=== PATIENT | male | born 1995 | race Caucasian/White ===

== ENCOUNTER 2017-01-08 19:53 | Emergency (ER) | payer OTHER ==
--- NOTE | 2017-01-08 20:04 | PDOC ---
History of Present Illness - General History Source: Patient Exam Limitations: No Limitations <Vipin Mathur - Last Filed: 01/08/17 20:35> <Fariba Parr - Last Filed: 01/12/17 02:16> - General Chief Complaint: Pain, Acute Stated Complaint: PAIN IN CHEST Time Seen by Provider: 01/08/17 20:01 - History of Present Illness Initial Comments: 01/08/17 20:35 The patient is a 21 year old male, with a significant past medical history of GERD and chronic back pain, who presents to the emergency department with chest discomfort for approximately 3 days. The patient reports he initially developed mild substernal chest discomfort 3 days ago while at work. Patient reports a long history of heavy lifting for work. Yesterday, patient reports injuring his back. Since then, he reports his chest discomfort has increased and is pleuritic in nature. He denies any associated diaphoresis, palpitations, shortness of breath, lower extremity edema, or lower extremity cramping. Patient reports his discomfort has persisted today, and he has also noted right chest wall muscle spasms. Patient reports his symptoms are similar to when he gets heartburn, however, they have persisted for much longer. He denies any recent illness, fever, chills, cough, headache, or dizziness. He denies any nausea, vomiting, diarrhea, constipation, or changes in urination. He denies any recent travel or sick contacts. Allergies: NKDA Past Surgical History: None reported Social History: Former smoker(2 packs per day for 6 years, quit 2 years ago). No ETOH or recreational drug use. PCP: Dr. Dell Booker (Vipin Mathur) Past History <Vipin Mathur - Last Filed: 01/08/17 20:35> - Past Medical History COPD: No Other medical history: DISC PROBLEM - Suicide/Smoking/Psychosocial Hx Smoking History: Never smoked Have you smoked in the past 12 months: No Information on smoking cessation initiated: No Hx Alcohol Use: No Drug/Substance Use Hx: No Substance Use Type: None <Fariba Parr - Last Filed: 01/12/17 02:16> - Past Medical History Allergies/Adverse Reactions: Allergies Allergy/AdvReac Type Severity Reaction Status Date / Time No Known Allergies Allergy Verified 01/08/17 19:55 Home Medications: Ambulatory Orders Diclofenac Sodium [Voltaren -] 75 mg PO BID PRN #20 tablet. 01/08/17 Review of Systems - Review of Systems Able to Perform ROS?: Yes <Mathur,Kalinareza - Last Filed: 01/08/17 20:35> <Fariba Parr - Last Filed: 01/12/17 02:16> - Review of Systems Comments:: 01/08/17 20:36 CONSTITUTIONAL: Absent: fever, no chills, no fatigue EYES: Absent: visual changes ENT: Absent: ear pain, no sore throat CARDIOVASCULAR: Present: chest discomfort/burning Absent: no palpitations RESPIRATORY: Absent: cough, no SOB GI: Absent: abdominal pain, no nausea, no vomiting, no constipation, no diarrhea GENITOURINARY: Absent: dysuria, no frequency, no hematuria MUSCULOSKELETAL: Present: Back pain, right chest wall muscle spasms Absent: no arthralgia, no myalgia, no lower extremity swelling or cramping SKIN: Absent: rash NEURO: Absent: headache (Vipin Mathur) *Physical Exam <Vipin Mathur - Last Filed: 01/08/17 20:35> <Fariba Parr - Last Filed: 01/12/17 02:16> - Vital Signs Last Vital Signs Temp Pulse Resp BP Pulse Ox 97.2 F L 76 18 143/85 99 01/08/17 19:59 01/08/17 19:59 01/08/17 19:59 01/08/17 19:59 01/08/17 19:59 - Physical Exam Comments: 01/08/17 20:36 GENERAL: The patient is awake, alert, and fully oriented, in no acute distress. HEAD: Normal with no signs of trauma. EYES: Pupils equal, round and reactive to light, extraocular movements intact, sclera anicteric, conjunctiva clear with no pallor. ENT: Ears normal, nares patent, oropharynx clear without exudates. Moist mucous membranes. NECK: Normal range of motion, supple without lymphadenopathy, JVD, or masses. LUNGS: Breath sounds equal, clear to auscultation bilaterally. No wheeze/ crackles. HEART: Regular rate and rhythm, normal S1 and S2 without murmur or rub. CHEST: Tenderness of the right upper anterior chest at approximately the 4th intercostal space at the midclavicular line without crepitus or step- offs.Tenderness of the xiphoid process, lower third of the sternum ABDOMEN: Mild epigastric tenderness, without palpable masses, rebound or guarding. Soft/nondistended. BS wnl. No hepatosplenomegaly. EXTREMITIES: Normal range of motion, no edema. No clubbing or cyanosis. No cords, erythema, or tenderness. SKIN: Warm, Dry, normal turgor, no rashes or lesions noted. (Vipin Mathur) - Medications Given in the ED: ED Medications Discontinued Medications Generic Name Dose Route Start Last Admin Trade Name Freq PRN Reason Stop Dose Admin Ketorolac Tromethamine 60 mg 01/08/17 20:23 01/08/17 20:27 Toradol Injection - IM 01/08/17 20:24 60 mg ONCE ONE Administration Progress Note <Vipin Mathur - Last Filed: 01/08/17 20:35> <Fariba Parr - Last Filed: 01/12/17 02:16> - Progress Note Progress Note: Documentation has been prepared under my direction and personally reviewed by me in its entirety. I attest that this documented accurately reflects all work, treatment, procedures and medical decision making performed by me. (Fariba Parr) Medical Decision Making <Vipin Mathur - Last Filed: 01/08/17 20:35> <Fariba Parr - Last Filed: 01/12/17 02:16> - Medical Decision Making As noted above, this 21-year-old man presents with chest tenderness and pain with deep breathing. No other associated symptoms. Patient has only one risk factor for coronary artery disease (short previous history of smoking, currently a nonsmoker). He has no risk factors for thromboembolic disease. Physical exam notable for distinct reproducibility of the pain with palpation of the xiphoid process and right upper anterior chest. Patient will be discharged with advice to use nonsteroidal anti-inflammatory medications as needed. He should not work tomorrow, following up with his general doctor and return to the ER if his symptoms worsen. (Fariba Parr) *DC/Admit/Observation/Transfer <Vipin Mathur - Last Filed: 01/08/17 20:35> <Fariba Parr - Last Filed: 01/12/17 02:16> Diagnosis at time of Disposition: Atypical chest pain - Discharge Dispostion Disposition: HOME Condition at time of disposition: Stable - Prescriptions Prescriptions: Diclofenac Sodium [Voltaren -] 75 mg PO BID PRN #20 tablet.dr SNYDER Reason: Moderate Pain - Referrals Referrals: Dell Booker MD [Staff Physician] - 2 Days - Patient Instructions Printed Discharge Instructions: DI for Atypical Chest Pain Additional Instructions: rest; drink plenty of water avoid foods that worsen your GERD acetaminophen/ibuprofen/naproxen as needed for mild pain(take with food) diclofenac 75 mg twice a day as needed for moderate pain(take with food) no work tomorrow followup with Dr Booker as discussed return to ER if you worsening pain/cough/fever - Post Discharge Activity Forms/Work/School Notes: Back to Work - Attestations Scribe Attestion: 01/08/17 20:37 Documentation prepared by Vipin Mathur, acting as medical assisting program director for Fariba Parr MD. (Vipin Mathur)
[2017-01-08 20:15] VITALS: BP 143/85; PULSE 76; TEMP 97.2; BMI 28.0
[2017-01-08] MEDS ORDERED: KETOROLAC TROMETHAMINE 60 MG/2 ML VIAL IM ONE (20:23)
[2017-01-08] MEDS ORDERED: KETOROLAC TROMETHAMINE 60 MG/2 ML VIAL ONE (20:24)
--- NOTE | 2017-01-15 12:58 | EKG ---
Test Reason : Blood Pressure : / mmHG Vent. Rate : 087 BPM Atrial Rate : 087 BPM P-R Int : 170 ms QRS Dur : 094 ms QT Int : 336 ms P-R-T Axes : 065 060 031 degrees QTc Int : 404 ms NORMAL SINUS RHYTHM NORMAL ECG NO PREVIOUS ECGS AVAILABLE Confirmed by OZIEL LANDRY MD ([id number] on 01/15/2017 12:58:11 PM Referred By: PAPO Confirmed By:OZIEL LANDRY MD
== END 2017-01-08 20:37 | disposition home or self-care (01) ==
LOC: FER 19:53
PROC: 3E0233Z Introduction of Anti-inflammatory into Muscle, Percutaneous Approach (ICD-10-PCS; principal; 2017-01-08)
DX: R07.89 Other chest pain (principal); K21.9 Gastro-esophageal reflux disease without esophagitis; M54.9 Dorsalgia, unspecified; G89.29 Other chronic pain
CPT/HCPCS: 93005; 93010; 99281-25